=== PATIENT | male | born 1985 | race Caucasian/White ===

== ENCOUNTER 2022-06-20 01:37 | Observation (INO) | payer SELFPAY ==
[2022-06-20] VITALS (179 sets, daily range): BP systolic 100–126; BP diastolic 60–82; PULSE 55–108; RESP 10–28; TEMP 36.3–37; O2SAT 97–100
--- NOTE | 2022-06-20 01:45 | RT.EKG_ITS ---
APPROVED REPORT Exam: Resting ECG Reason for Exam: under the influence Patient Location: E HR:96 bpm ECG Measurements Heart Rate 96 AXIS RI 150 P 80 QRSd 81 QRS 78 QT 368 T 70 QTc 464 Conclusion Sinus rhythm...normal P axis, V-rate 60- 99 Probable left ventricular hypertrophy...multiple LVH criteria Physician: no stemi, intervals stable
[2022-06-20 01:50] LABS: BE (Venous) 3 mmol/L (-2-3); HCO3 (Venous) 28 mmol/L (23-28); O2 Sat (Venous) 78 %; TCO2 (Venous) 26 mmol/L (24-29); pCO2 (Venous) 50 mmHg (41-51); pH (Venous) 7.36 (7.31-7.41); pO2 (Venous) 45 mmHg
[2022-06-20 01:52] LABS: Lactate 2.3 mmol/L (0.6-1.4)
[2022-06-20 01:54] LABS: Abs Immature Grans 0.03 10^3/uL (0.0-0.06); Absolute Basophil Count 0.09 10^3/uL (0.0-0.2); Absolute Eosinophil Count 0.28 10^3/uL (0.0-0.7); Absolute Lymphocyte Count 2.49 10^3/uL (1.2-3.4); Absolute Monocyte Count 1.27 10^3/uL (0.1-0.8); Basophils % 0.8; Eosinophils % 2.4; HCT 38.6 % (40.0-50.0); HGB 12.5 g/dL (13.5-17.5); Immature Grans % 0.3; Lymphocytes % 21.1; MCH 27.2 pg (27.0-33.0); MCHC 32.4 % (32.0-36.0); MCV 84 fL (80-95); MPV 10.4 fL (8.0-11.0); Monocytes % 10.8; Neutrophils % 64.6; Platelet Count 271 10^3/uL (130-400); RDW 13.2 % (11.8-14.1); RDW-SD 40.9 fL; WBC 11.79 10^3/uL (4.4-10.8)
[2022-06-20] MEDS: LORazepam 2 MG/ML VIAL 1 MG IVP (01:55)
[2022-06-20 02:01] LABS: Absolute Neutrophil Count 7.62 10^3/uL (1.2-6.7)
[2022-06-20 02:10] LABS: ALT 99 U/L (16-63); AST 118 U/L (15-37); Albumin 4.3 g/dL (3.4-5.0); Alkaline Phosphatase 83 U/L (46-116); Anion Gap 8.2 mmol/L (3-11); BUN 29 mg/dL (7-18); CO2 28.8 mmol/L (21.0-32.0); CREATININE 1.3 mg/dL (0.70-1.30); Chloride 104 mmol/L (98-107); Estimated GFR 72.11 (mL/min/1.73m2); Glucose 108 mg/dL (74-106); Potassium 3.6 mmol/L (3.5-5.1); Sodium 141 mmol/L (136-145); Total Protein 8.2 g/dL (6.4-8.2)
--- NOTE | 2022-06-20 02:10 | ED.GENADUL_ITS ---
Discharge Plan Disposition Patient Disposition: Admit to [facility] Condition: Stable Discharge Details Chief Complaint: AMS/LOC Clinical Impression: Delirium, drug-induced, Rhabdomyolysis, Acute kidney injury, Cocaine use Primary Care Provider: Unknown,Unknown ED Provider: Mauricio Christy Medical Decision Making 37-year-old male with no known medical history who is new to this medical system who is from [place], presents today for altered mental status. This evening police got a call that a man was walking around outside yelling, being violent, and making nonsensical statements. When police got there the patient continued in his violent and aggressive behavior per police, he was nonsensical and all of his statements, with perseverations and pressured speech. He was handcuffed, but continued to flail about in the police cruiser. EMS was on scene and the decision was made to chemically restrain the patient. He was given 200 mg of ketamine and brought into the ER for further assessment. EMS has no additional historical components aside for the patient's aggressive behavior, nonsensical statements, and altered mental status. No other known historical components at this time. No drug paraphernalia was noted on scene. Patient physical exam demonstrates an extremely agitated individual, currently likely under the effects of ketamine to a degree, per EMS and police he is notably less agitated now than he was when they initially assessed him. Patient was handcuffed, and continuing to flail about here in the ED. Patient was put in four-point restraints, 2 IVs were established. He moves all extremities and shows no clinical evidence of a focal deficit of strength or discoordination. He does verbally respond to some questions, but at other times remains completely incoherent with his statements. Differential is highest for an agitated delirium state likely secondary to a psychogenic medication or illicit substance. Trauma is less likely but we will get a CT scan of the head to rule out acute traumatic process or bleed. No clinical signs of meningitis. The patient is afebrile. We will give some Ativan to continue to help maintain the patient's safety from his notable flailing. We will monitor closely and reassess. 3:30 AM EKG is stable, he intervals normal. Laboratory work-up shows mildly elevated white count, lactate is high at 2.3, VBG is stable for pH, electrolytes normal, renal function demonstrates an elevated creatinine at 1.3, GFR 72, mild elevation in his transaminases. CPK is 2700 and is consistent with rhabdomyolysis. Thyroid function stable. Acetaminophen salicylates and alcohol levels are negative. Urine drug screen is positive for amphetamines and cocaine, which certainly correlates with his symptomatology. Patient initially was dry on straight cath, however he is now urinated over 100 cc. We will continue to rehydrate. He has been given 2 L and we are starting on the third liter of normal saline at this point. CT scan of the head is negative for acute process. Troponin is normal. Procalcitonin is less than 0.1. Symptoms inconsistent with meningitis or encephalitis clinically. Discussed the case with hospitalist Dr. Garcia, she agrees with the assessment and plan. I have extensively reviewed the treatment plan with the patient. I have addressed all patient concerns at this time. I have also discussed the plan with the admitting physician and they agree with the current assessment and plan and have agreed to assume responsibility for the patient. All parties demonstrate verbal understanding and agreement with our assessment and plan at this time. The documentation in this chart was dictated using [employer] dictation software. Please excuse any dictation errors. On reassessment at time of admission the patient is resting comfortably. He is sleeping. Gag reflex notably intact. Vital signs stable with a blood pressure of 109 systolic, heart rate 84. FINDINGS: Brain: No intracranial hemorrhage. No mass. No definite edema. Cerebral ventricles: No hydrocephalus. Paranasal sinuses: No acute sinusitis. Mastoid air cells: No significant effusion. Orbital cavities: Unremarkable as visualized. Bones/joints: No acute fracture. Soft tissues: Unremarkable. IMPRESSION: No definite acute intracranial abnormality. Thank you for allowing us to participate in the care of your patient. Dictated and Authenticated by: Raymond Adkins MD 06/20/2022 3:23 AM Eastern Time ([place] & [place]) HPI General Date/Time Provider Initiated Documentation: 06/20/22 01:37 . HPI Narrative: 37-year-old male with no known medical history who is new to this medical system who is from [place], presents today for altered mental status. This evening police got a call that a man was walking around outside yelling, being violent, and making nonsensical statements. When police got there the patient continued in his violent and aggressive behavior per police, he was nonsensical and all of his statements, with perseverations and pressured speech. He was handcuffed, but continued to flail about in the police cruiser. EMS was on scene and the decision was made to chemically restrain the patient. He was given 200 mg of ketamine and brought into the ER for further assessment. EMS has no additional historical components aside for the patient's aggressive behavior, nonsensical statements, and altered mental status. No other known historical components at this time. No drug paraphernalia was noted on scene. Review of Systems All systems reviewed & are unremarkable except as noted in HPI and below PFSH All Active Problems Delirium, drug-induced (Acute) Rhabdomyolysis (Acute) Acute kidney injury (Acute) Cocaine use (Acute) Social History Smoking/Tobacco Use Status: Unknown Smoking risk assessment performed?: Yes Substance use type: unknown Exam Narrative Exam Narrative: 1.Const: Well-nourished, Well-developed, appearing stated age 2.Eyes: PERRL, no conjunctival injection, and symmetrical lids. No pinpoint pupils or overly dilated pupils 3.ENT: Atraumatic external nose and ears. Moist MM. Neck: Symmetric, trachea midline, No thyromegaly. 4.CVS: +S1/S2, No murmurs or gallops. Peripheral pulses 2+ and equal in all extremities. Brisk capillary refill in all extremities. 5.RESP: Unlabored respiratory effort. Clear to auscultation bilaterally. No wheezes rales or rhonchi 6.GI: Soft, Nontender/Nondistended, No hepatosplenomegaly. No guarding or rebound. 7.MSK: Normocephalic/Atraumatic, Extremities w/o deformity or ttp No cyanosis or clubbing, Normal movement of all extremities 8.Skin: Warm, Dry. No rashes or lesions. No vesicular rash. No signs of trauma. There do appear to be a few potential needle cam in his AC joints. 9.Neuro: fugitive detective II-XII grossly intact. Patient moving all extremities. Patient flailing about. Patient does respond verbally to some statements and questions, but then otherwise make some nonsensical sounds. Patient appears to be notably under the influence of a psychogenic substance. Gag reflex notably intact 10.Psych: (AAO) x0. Please see neuro Course Lab/Test Results Lab/Test Results: Laboratory Tests Range/Units 06/20/22 06/20/22 06/20/22 01:40 01:40 01:40 WBC (4.4-10.8) 10^3/uL 11.79 H RBC (4.36-5.78) 10^6/uL 4.60 Hgb (13.5-17.5) g/dL 12.5 L Hct (40.0-50.0) % 38.6 L MCV (80-95) fL 84 MCH (27.0-33.0) pg 27.2 MCHC (32.0-36.0) % 32.4 RDW (11.8-14.1) % 13.2 Plt Count (130-400) 10^3/uL 271 MPV (8.0-11.0) fL 10.4 Immature Gran % 0.3 Neutrophils % 64.6 Lymphocytes % 21.1 Monocytes % 10.8 Eosinophils % 2.4 Basophils % 0.8 Nucleated RBC % (0.0-0.3) % 0.0 Absolute Neutrophils (1.2-6.7) 10^3/uL 7.62 H Absolute Lymphocytes (1.2-3.4) 10^3/uL 2.49 Absolute Monocytes (0.1-0.8) 10^3/uL 1.27 H Absolute Eosinophils (0.0-0.7) 10^3/uL 0.28 Absolute Basophils (0.0-0.2) 10^3/uL 0.09 VBG pH (7.31-7.41) 7.36 VBG pCO2 (41-51) mmHg 50 VBG pO2 mmHg 45 VBG HCO3 (23-28) mmol/L 28 VBG Total CO2 (24-29) mmol/L 26 VBG O2 Saturation % 78 VBG Base Excess (-2-3) mmol/L 3 VBG Lactate (0.6-1.4) mmol/L 2.3 H* Critical Care Time Critical Care Time Critical Care Time: Yes Total Critical Care Time: 45 Attestation: Upon my evaluation, this patient had a high probability of imminent or life-threatening deterioration, which required my direct attention, intervention, and personal management. I have personally provided 45 minutes of critical care time exclusive of time spent on separately billable procedures. Time includes review of laboratory data, radiology results, discussion with consultants, and monitoring for potential decompensation. Interventions were performed as documented. Restraint Face to Face Time of Face to Face Face to Face: Time of Face to Face: 03:16 Patient's Immediate Situation Requiring Restraints/Seclusion: Harm to Staff & Others Patient Response to Restraints: Tolerating without Problems Patient's Medical & Behavioral Condition: Patient is no longer physically assaulting, he is sleeping comfortably. Restraints will be removed Need for Continuation of Restraints Has Been Assessed: Restraints Terminated
--- NOTE | 2022-06-20 02:15 | DI.CT_ITS ---
Exam(s) CT HEAD WO EXAM: CT HEAD WO CLINICAL HISTORY: AMS, r/o bleed. TECHNIQUE: Imaging Protocol: Axial computed tomography images with coronal and sagittal reformatted images were created and reviewed COMPARISON: No exams were available for comparison FINDINGS: Ventricles and Extra axial spaces: Normal in size and morphology for the patient's age. Hemorrhage: None. Cerebral parenchyma: Normal. Midline shift: None. Brainstem/Cerebellum: Normal. Calvarium: Normal. Visualized Paranasal sinuses/Mastoids: Clear. Soft Tissues: Unremarkable. IMPRESSION: No acute intracranial process. RADIATION DOSE DELIVERED: 961.69mGy.cm Total DLP DATA REPOSITORY: All CT scans at this facility are submitted to the National Radiology Data Registry (NRDR) Dose Index Registry (DIR) with the [employer] (ACR). RADIATION OPTIMIZATION: All CT scans at this facility use at least one of these dose optimization te chniques: automated exposure control; mA and/or kV adjustment per patient size (includes targeted exa ms where dose is matched to clinical indication); or iterative reconstruction.
[2022-06-20 02:19] LABS: Salicylate < 2.8 mg/dL (<2.8)
[2022-06-20 02:20] LABS: Acetaminophen < 2 ug/mL (10-30)
[2022-06-20] MEDS: Normal Saline 1,000 ML 1000 ML IV ×3 (02:20→03:30)
[2022-06-20 02:21] LABS: ETHANOL BLOOD 5.3 mg/dL (<10); TSH (W/Ref FT4) 0.24 uIU/mL (0.36-3.74); Troponin I < 50 ng/L (<or=60)
[2022-06-20 02:25] LABS: Procalcitonin < 0.1 ng/mL
--- NOTE | 2022-06-20 02:34 | NUR.NOTE ---
Nursing Note: Pt to CT - accompanied by security, a nurse and a tech
[2022-06-20 02:41] LABS: FREE T4 1.26 ng/dL (0.76-1.46)
[2022-06-20 02:45] LABS: Creatine Kinase 2712 U/L (39-308)
[2022-06-20 03:06] LABS: *AMPHETAMINES SCREEN URINE Positive (Negative); *BARBITURATES SCREEN URINE Negative (Negative); *BENZODIAZEPINES SCREEN URINE Negative (Negative); Cannabinoids THC Negative (Negative); Cocaine Screen,Urine Positive (Negative); METHADONE URINE SCREEN Negative (Negative); OPIATES URINE SCREEN Negative (Negative)
[2022-06-20 03:08] LABS: Tricyclic Antidepressants Negative (Negative)
--- NOTE | 2022-06-20 03:24 | DI.VRAD_ITS ---
PROCEDURE INFORMATION: Exam: CT Head Without Contrast Exam date and time: 06/20/2022 2:39 AM Age: 37 years old Clinical indication: Other: AMS, R/O bleed TECHNIQUE: Imaging protocol: Computed tomography of the head without contrast. Radiation optimization: All CT scans at this facility use at least one of these dose optimization techniques: automated exposure control; mA and/or kV adjustment per patient size (includes targeted exams where dose is matched to clinical indication); or iterative reconstruction. COMPARISON: No relevant prior studies available. FINDINGS: Brain: No intracranial hemorrhage. No mass. No definite edema. Cerebral ventricles: No hydrocephalus. Paranasal sinuses: No acute sinusitis. Mastoid air cells: No significant effusion. Orbital cavities: Unremarkable as visualized. Bones/joints: No acute fracture. Soft tissues: Unremarkable. IMPRESSION: No definite acute intracranial abnormality. Dictated and Authenticated by: Raymond Adkins MD. Ordering:PETE Martínez MD
--- NOTE | 2022-06-20 03:37 | HPE_ITS ---
Date of service: 06/20/22 Time of Service: 03:37 Assessment and Plan Assessment and plan (1) Elevated CK: Status: Acute Assessment and plan: No evidence of rhabdo as of yet, CK is not overly impressive. I will assess further with UA to check for blood. Patient unable to endorse whether there is muscle pain so unclear as to whether this is just CK elevations or true rhabdo. I suspect this is simple CK elevation, but will keep a close eye on urine output and send a UA once able. - UA - 1L LR - s/p 2L NS (2) Agitated: Status: Acute Assessment and plan: Due to drug intoxication, resolved with sedation provided. Head CT nothing acute. - Ativan prn for when he wakes up - if agitation returns, would consider Precedex (3) Delirium, drug-induced: Status: Acute (4) Intoxication by drug: Status: Acute History of Present Illness Narrative: This is a 37 yo who is from [place] and is being admitted for polysubstance intoxication, agitation and elevated CPK levels. The police were called on this patient overnight with reports of yelling, violent behaviour and confused statements. He was handcuffed but remained physically agitated while in custody. EMS on scene restrained him and he was given 200mg ketamine and brought to the ED for assessment. This patient is new to our medical system and presumably is otherwise healthy. His labs were significant for an elevated CK, but with a normal GFR, normal VBG and a tox screen positive for amphetamines and cocaine. His EtOH level is 5.3. His EKG and head CT are not concerning. Admission was requested as the patient was now somnolent. Patient is sedated and non participatory in interview. Review of Systems Unobtainable due to mental status PFSH All Active Problems Intoxication by drug (Acute) Agitated (Acute) Elevated CK (Acute) Delirium, drug-induced (Acute) Cocaine use (Acute) Social History Smoking/Tobacco Use Status: Unknown Smoking risk assessment performed?: Yes Substance use type: unknown Exam Narrative Exam Narrative: Gen: NAD, sleeping, well-nourished HENT: PERRL Chest: No respiratory distress, normal appearance of chest, clear to auscultation bilaterally, no crackles or wheezes, normal inspiratory effort Heart: regular rate and rhythym, no murmurs, rubs or gallops Abdomen: Non-distended, soft, non tender Extremities: No clubbing, edema, cyanosis, rashes Neuro: somnolent Psych: somnolent Results Labs Result diagrams: 06/20/22 01:40 06/20/22 01:40 Labs: Laboratory Results - last 24 hr 06/20/22 06/20/22 06/20/22 01:40 01:40 01:40 WBC RBC Hgb Hct MCV MCH MCHC RDW Plt Count MPV Immature Gran % Neutrophils % Lymphocytes % Monocytes % Eosinophils % Basophils % Nucleated RBC % Absolute Neutrophils Absolute Lymphocytes Absolute Monocytes Absolute Eosinophils Absolute Basophils VBG pH VBG pCO2 VBG pO2 VBG HCO3 VBG Total CO2 VBG O2 Saturation VBG Base Excess VBG Lactate Sodium 141 Potassium 3.6 Chloride 104 Carbon Dioxide 28.8 Anion Gap 8.2 BUN 29 H Creatinine 1.3 Est GFR (CKD-EPI 2020) 72.11 Glucose 108 H Calcium 9.0 Total Bilirubin 1.0 AST 118 H ALT 99 H Alkaline Phosphatase 83 Creatine Kinase Troponin I Total Protein 8.2 Albumin 4.3 Procalcitonin < 0.1 TSH Free T4 Salicylates < 2.8 Urine Opiates Screen Urine Methadone Screen Acetaminophen < 2 Ur Barbiturates Screen Ur Tricyclics Screen Ur Amphetamines Screen U Benzodiazepines Scrn Urine Cocaine Screen Ur THC Screen Ethyl Alcohol 06/20/22 06/20/22 06/20/22 01:40 01:40 01:40 WBC 11.79 H RBC 4.60 Hgb 12.5 L Hct 38.6 L MCV 84 MCH 27.2 MCHC 32.4 RDW 13.2 Plt Count 271 MPV 10.4 Immature Gran % 0.3 Neutrophils % 64.6 Lymphocytes % 21.1 Monocytes % 10.8 Eosinophils % 2.4 Basophils % 0.8 Nucleated RBC % 0.0 Absolute Neutrophils 7.62 H Absolute Lymphocytes 2.49 Absolute Monocytes 1.27 H Absolute Eosinophils 0.28 Absolute Basophils 0.09 VBG pH VBG pCO2 VBG pO2 VBG HCO3 VBG Total CO2 VBG O2 Saturation VBG Base Excess VBG Lactate 2.3 H* Sodium Potassium Chloride Carbon Dioxide Anion Gap BUN Creatinine Est GFR (CKD-EPI 2020) Glucose Calcium Total Bilirubin AST ALT Alkaline Phosphatase Creatine Kinase Troponin I < 50 Total Protein Albumin Procalcitonin TSH 0.24 L Free T4 1.26 Salicylates Urine Opiates Screen Urine Methadone Screen Acetaminophen Ur Barbiturates Screen Ur Tricyclics Screen Ur Amphetamines Screen U Benzodiazepines Scrn Urine Cocaine Screen Ur THC Screen Ethyl Alcohol 5.3 06/20/22 06/20/22 06/20/22 01:40 01:40 02:47 WBC RBC Hgb Hct MCV MCH MCHC RDW Plt Count MPV Immature Gran % Neutrophils % Lymphocytes % Monocytes % Eosinophils % Basophils % Nucleated RBC % Absolute Neutrophils Absolute Lymphocytes Absolute Monocytes Absolute Eosinophils Absolute Basophils VBG pH 7.36 VBG pCO2 50 VBG pO2 45 VBG HCO3 28 VBG Total CO2 26 VBG O2 Saturation 78 VBG Base Excess 3 VBG Lactate Sodium Potassium Chloride Carbon Dioxide Anion Gap BUN Creatinine Est GFR (CKD-EPI 2020) Glucose Calcium Total Bilirubin AST ALT Alkaline Phosphatase Creatine Kinase 2712 H Troponin I Total Protein Albumin Procalcitonin TSH Free T4 Salicylates Urine Opiates Screen Negative Urine Methadone Screen Negative Acetaminophen Ur Barbiturates Screen Negative Ur Tricyclics Screen Negative Ur Amphetamines Screen Positive A U Benzodiazepines Scrn Negative Urine Cocaine Screen Positive A Ur THC Screen Negative Ethyl Alcohol Last Vital Signs Temp 37 C 06/20/22 02:00 Pulse 75 06/20/22 03:31 Resp 12 06/20/22 03:31 BP 103/65 06/20/22 03:31 Pulse Ox 98 06/20/22 02:00 Time Spent Time spent with Patient: <40 minutes Time was spent: preparing to see the patient(eg.review tests), obtaining and/or reviewing separately otained hiistory, ordering medications,tests, procedures and referring, communicating with other health care management specialist
[2022-06-20 03:53] LABS: Source Nasal/Nares
[2022-06-20 03:58] LABS: Bilirubin Negative (Negative); Blood Negative (Negative); Clarity Sl Cloudy (Clear); Glucose Negative (Negative); Ketones Negative (Negative); Leukocyte Esterase Negative (Negative); Nitrite Negative (Negative); Specific Gravity >= 1.030 (1.005-1.025); Urobilinogen 0.2 EU/dL (Up TO 0.2); pH 5.5 (5-8)
[2022-06-20 04:08] LABS: Bacteria Moderate HPF (Negative); C & S Indicated? Yes; Crystals Few Amorphous HPF (Negative); Epithelial Cells Rare HPF (Negative); Mucus Negative (Negative); RBC 0-2 HPF (0-2)
[2022-06-20 04:23] LABS: COVID-19 PCR Negative (Negative)
[2022-06-20 10:09] LABS: BUN 24 mg/dL (7-18); CREATININE 0.9 mg/dL (0.70-1.30); Calcium 8.1 mg/dL (8.5-10.1); Chloride 109 mmol/L (98-107); Creatine Kinase 2200 U/L (39-308); Estimated GFR 112.11 (mL/min/1.73m2); Glucose 97 mg/dL (74-106); Sodium 142 mmol/L (136-145)
[2022-06-20 10:25] LABS: HCT 34.4 % (40.0-50.0); HGB 11.5 g/dL (13.5-17.5); MCV 84 fL (80-95); RBC 4.11 10^6/uL (4.36-5.78); WBC 10.15 10^3/uL (4.4-10.8)
[2022-06-20 10:26] LABS: MCHC 33.4 % (32.0-36.0); MPV 10.9 fL (8.0-11.0); Platelet Count 211 10^3/uL (130-400); RDW 13.5 % (11.8-14.1); RDW-SD 41.5 fL
--- NOTE | 2022-06-20 10:28 | PDOC.CMIN ---
- If Service Date Differs Date of service: 06/20/22 Time of Service: 10:28 Care Management Initial Assess REASON FOR HOSPITALIZATION:: Drug induced delirium, AMS PAST MEDICAL HISTORY/PAST SURGICAL HISTORY:: This is a 37 yo who is from [place] and is being admitted for polysubstance intoxication, agitation and elevated CPK levels. The police were called on this patient overnight with reports of yelling, violent behaviour and confused statements. He was handcuffed but remained physically agitated while in custody. EMS on scene restrained him and he was given 200mg ketamine and brought to the ED for assessment. This patient is new to our medical system and presumably is otherwise healthy. His labs were significant for an elevated CK, but with a normal GFR, normal VBG and a tox screen positive for amphetamines and cocaine. His EtOH level is 5.3. His EKG and head CT are not concerning. Admission was requested as the patient was now somnolent. Patient is sedated and non participatory in interview. CURRENT FUNCTIONAL STATUS:: Sedated in ICU. Has patient been provided with info about the portal/API?: No Did the patient sign up for the portal?: No CODE STATUS:: Full Code INSURANCE COVERAGE / FINANCIAL ISSUES:: Unknown PRIMARY CARE PHYSICIAN:: Unknown POTENTIAL DISCHARGE NEEDS:: Determine safe discharge plan, current service supports, patient information. ANTICIPATED BARRIERS TO DISCHARGE:: None identified. TRANSPORTATION:: TBD by disposition. PLAN:: Patient is sedated and non participatory in interview. CM will continue to follow and support patient needs and discharge planning considerations. CPSO ordered at this time for patient safety; no interim safety plan indicated at this time, once medically cleared this may be reconsidered-if indicated.
[2022-06-20] MEDS: Lactated Ringers 1,000 ML 125 ML IV ×2 (12:23→19:59)
[2022-06-20] MEDS: Normal Saline Flush 10 ML SYR (13:10)
--- NOTE | 2022-06-20 13:59 | PGE_ITS ---
Date of Service Date of service: 06/20/22 Time of Service: 10:00 Assessment and Plan Assessment and plan (1) Delirium, drug-induced: Status: Acute Assessment and plan: So far, the patient is mostly asleep. Should he become agitated again, we have a number of options that can be used to control his behaviors including lorazepam, precedex, antipsychotics, ketamine pushes (50 mg would last about an hour) or a ketamine drip (would require an anesthesia consult). Continues to monitor behaviors. has a sitter. (2) Elevated CK: Status: Acute Assessment and plan: Continue IVF. CPK is trending down. (3) Intoxication by drug: Status: Acute Assessment and plan: UDS positive for cocaine and amphetamines. Will monitor for both signs of intoxication and withdrawal. (4) Dehydration: Status: Acute Assessment and plan: Continue IVF. (5) DVT prophylaxis: Status: Acute Assessment and plan: Not required in a 37 year old ambulatory male (6) Discharge planning issues: Status: Acute Assessment and plan: Full code Continues to require ICU. Total Critical Care Time 45 minutes. Subjective Subjective Interval history since last seen: Mr Shannon has been asleep comfortably. He has not required oxygen and is able to maintain his airway. Nursing is working on discontinuing his 4 point restraints. He does not wake up enough during my visit to answer questions. Exam Narrative Exam Narrative: General: male who is resting comfortably in bed, breathing sonorously HEENT: eyes closed, dry MM Heart: RRR Lungs: CTAB Abdomen: soft, nondistended Extremities: no edema BLEs, [address] Objective Last Vital Signs Temp 36.8 C 06/20/22 08:00 Pulse 72 06/20/22 13:11 Resp 13 06/20/22 13:11 BP 106/68 06/20/22 13:11 Pulse Ox 97 06/20/22 13:11 Laboratory Results - last 24 hr 06/20/22 06/20/22 06/20/22 01:40 01:40 01:40 WBC RBC Hgb Hct MCV MCH MCHC RDW Plt Count MPV Immature Gran % Neutrophils % Lymphocytes % Monocytes % Eosinophils % Basophils % Nucleated RBC % Absolute Neutrophils Absolute Lymphocytes Absolute Monocytes Absolute Eosinophils Absolute Basophils VBG pH VBG pCO2 VBG pO2 VBG HCO3 VBG Total CO2 VBG O2 Saturation VBG Base Excess VBG Lactate Sodium 141 Potassium 3.6 Chloride 104 Carbon Dioxide 28.8 Anion Gap 8.2 BUN 29 H Creatinine 1.3 Est GFR (CKD-EPI 2020) 72.11 Glucose 108 H Calcium 9.0 Total Bilirubin 1.0 AST 118 H ALT 99 H Alkaline Phosphatase 83 Creatine Kinase Troponin I Total Protein 8.2 Albumin 4.3 Procalcitonin < 0.1 TSH Free T4 Urine Color Urine Clarity Urine pH Ur Specific Blackwell Urine Protein Urine Ketones Urine Blood Urine Nitrite Urine Bilirubin Urine Urobilinogen Ur Leukocyte Esterase Urine RBC Urine WBC Ur Epithelial Cells Urine Crystals Urine Bacteria Urine Mucus Ur Culture Indicated? Urine Glucose Salicylates < 2.8 Urine Opiates Screen Urine Methadone Screen Acetaminophen < 2 Ur Barbiturates Screen Ur Tricyclics Screen Ur Amphetamines Screen U Benzodiazepines Scrn Urine Cocaine Screen Ur THC Screen Ethyl Alcohol COVID-19 Source SARS-CoV-2 (PCR) 06/20/22 06/20/22 06/20/22 01:40 01:40 01:40 WBC 11.79 H RBC 4.60 Hgb 12.5 L Hct 38.6 L MCV 84 MCH 27.2 MCHC 32.4 RDW 13.2 Plt Count 271 MPV 10.4 Immature Gran % 0.3 Neutrophils % 64.6 Lymphocytes % 21.1 Monocytes % 10.8 Eosinophils % 2.4 Basophils % 0.8 Nucleated RBC % 0.0 Absolute Neutrophils 7.62 H Absolute Lymphocytes 2.49 Absolute Monocytes 1.27 H Absolute Eosinophils 0.28 Absolute Basophils 0.09 VBG pH VBG pCO2 VBG pO2 VBG HCO3 VBG Total CO2 VBG O2 Saturation VBG Base Excess VBG Lactate 2.3 H* Sodium Potassium Chloride Carbon Dioxide Anion Gap BUN Creatinine Est GFR (CKD-EPI 2020) Glucose Calcium Total Bilirubin AST ALT Alkaline Phosphatase Creatine Kinase Troponin I < 50 Total Protein Albumin Procalcitonin TSH 0.24 L Free T4 1.26 Urine Color Urine Clarity Urine pH Ur Specific Blackwell Urine Protein Urine Ketones Urine Blood Urine Nitrite Urine Bilirubin Urine Urobilinogen Ur Leukocyte Esterase Urine RBC Urine WBC Ur Epithelial Cells Urine Crystals Urine Bacteria Urine Mucus Ur Culture Indicated? Urine Glucose Salicylates Urine Opiates Screen Urine Methadone Screen Acetaminophen Ur Barbiturates Screen Ur Tricyclics Screen Ur Amphetamines Screen U Benzodiazepines Scrn Urine Cocaine Screen Ur THC Screen Ethyl Alcohol 5.3 COVID-19 Source SARS-CoV-2 (PCR) 06/20/22 06/20/22 06/20/22 01:40 01:40 02:47 WBC RBC Hgb Hct MCV MCH MCHC RDW Plt Count MPV Immature Gran % Neutrophils % Lymphocytes % Monocytes % Eosinophils % Basophils % Nucleated RBC % Absolute Neutrophils Absolute Lymphocytes Absolute Monocytes Absolute Eosinophils Absolute Basophils VBG pH 7.36 VBG pCO2 50 VBG pO2 45 VBG HCO3 28 VBG Total CO2 26 VBG O2 Saturation 78 VBG Base Excess 3 VBG Lactate Sodium Potassium Chloride Carbon Dioxide Anion Gap BUN Creatinine Est GFR (CKD-EPI 2020) Glucose Calcium Total Bilirubin AST ALT Alkaline Phosphatase Creatine Kinase 2712 H Troponin I Total Protein Albumin Procalcitonin TSH Free T4 Urine Color Urine Clarity Urine pH Ur Specific Blackwell Urine Protein Urine Ketones Urine Blood Urine Nitrite Urine Bilirubin Urine Urobilinogen Ur Leukocyte Esterase Urine RBC Urine WBC Ur Epithelial Cells Urine Crystals Urine Bacteria Urine Mucus Ur Culture Indicated? Urine Glucose Salicylates Urine Opiates Screen Negative Urine Methadone Screen Negative Acetaminophen Ur Barbiturates Screen Negative Ur Tricyclics Screen Negative Ur Amphetamines Screen Positive A U Benzodiazepines Scrn Negative Urine Cocaine Screen Positive A Ur THC Screen Negative Ethyl Alcohol COVID-19 Source SARS-CoV-2 (PCR) 06/20/22 06/20/22 06/20/22 02:47 03:50 05:20 WBC RBC Hgb Hct MCV MCH MCHC RDW Plt Count MPV Immature Gran % Neutrophils % Lymphocytes % Monocytes % Eosinophils % Basophils % Nucleated RBC % Absolute Neutrophils Absolute Lymphocytes Absolute Monocytes Absolute Eosinophils Absolute Basophils VBG pH VBG pCO2 VBG pO2 VBG HCO3 VBG Total CO2 VBG O2 Saturation VBG Base Excess VBG Lactate Sodium Potassium Chloride Carbon Dioxide Anion Gap BUN Creatinine Est GFR (CKD-EPI 2020) Glucose Calcium Total Bilirubin AST ALT Alkaline Phosphatase Creatine Kinase 2200 H Troponin I Total Protein Albumin Procalcitonin TSH Free T4 Urine Color Yellow Urine Clarity Sl Cloudy Urine pH 5.5 Ur Specific Blackwell >= 1.030 H Urine Protein 30 H Urine Ketones Negative Urine Blood Negative Urine Nitrite Negative Urine Bilirubin Negative Urine Urobilinogen 0.2 Ur Leukocyte Esterase Negative Urine RBC 0-2 Urine WBC 3-5 Ur Epithelial Cells Rare Urine Crystals Few Amorphous Urine Bacteria Moderate Urine Mucus Negative Ur Culture Indicated? Yes Urine Glucose Negative Salicylates Urine Opiates Screen Urine Methadone Screen Acetaminophen Ur Barbiturates Screen Ur Tricyclics Screen Ur Amphetamines Screen U Benzodiazepines Scrn Urine Cocaine Screen Ur THC Screen Ethyl Alcohol COVID-19 Source Nasal/Nares SARS-CoV-2 (PCR) Negative 06/20/22 06/20/22 05:20 05:20 WBC 10.15 RBC 4.11 L Hgb 11.5 L Hct 34.4 L MCV 84 MCH 28.0 MCHC 33.4 RDW 13.5 Plt Count 211 MPV 10.9 Immature Gran % Neutrophils % Lymphocytes % Monocytes % Eosinophils % Basophils % Nucleated RBC % Absolute Neutrophils Absolute Lymphocytes Absolute Monocytes Absolute Eosinophils Absolute Basophils VBG pH VBG pCO2 VBG pO2 VBG HCO3 VBG Total CO2 VBG O2 Saturation VBG Base Excess VBG Lactate Sodium 142 Potassium 4.0 Chloride 109 H Carbon Dioxide 25.0 Anion Gap 8.0 BUN 24 H Creatinine 0.9 Est GFR (CKD-EPI 2020) 112.11 Glucose 97 Calcium 8.1 L Total Bilirubin AST ALT Alkaline Phosphatase Creatine Kinase Troponin I Total Protein Albumin Procalcitonin TSH Free T4 Urine Color Urine Clarity Urine pH Ur Specific Blackwell Urine Protein Urine Ketones Urine Blood Urine Nitrite Urine Bilirubin Urine Urobilinogen Ur Leukocyte Esterase Urine RBC Urine WBC Ur Epithelial Cells Urine Crystals Urine Bacteria Urine Mucus Ur Culture Indicated? Urine Glucose Salicylates Urine Opiates Screen Urine Methadone Screen Acetaminophen Ur Barbiturates Screen Ur Tricyclics Screen Ur Amphetamines Screen U Benzodiazepines Scrn Urine Cocaine Screen Ur THC Screen Ethyl Alcohol COVID-19 Source SARS-CoV-2 (PCR) Multi-Disciplinary Checklist Lines/Tubes CENTRAL LINE: no ARTERIAL LINE: no ARENAS: yes, [place] Day#: 0 ENDOTRACHEAL TUBE: no ICU Maintenance GLUCOSE 140-180mg/dL: no, Reason/Intervention: not diabetic NUTRITION AT GOAL: no, Reason/Intervention: writing for a clear liquid diet, advance as tolerated PRESSURE ULCER: no RESTRAINTS: yes, Reviewed Necessity: Yes ANTIBIOTICS(if yes, consider Stewardship): No Social Issues FAMILY UPDATED: no, Reason/Intervention: no contact info in the computer PT/OT: no, Reason/Intervention: not clinically appropriate 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
[2022-06-20 16:30] LABS: Lactate 0.7 mmol/L (0.6-1.4)
--- NOTE | 2022-06-20 18:29 | NUR.NOTE ---
pt expressed gratitude for nurses effort to meet his needs at the end of the shift.
[2022-06-21] VITALS (10 sets, daily range): BP systolic 98–123; BP diastolic 50–80; PULSE 72–100; RESP 11–15; TEMP 36.7–37.1; O2SAT 96–98
[2022-06-21 06:33] LABS: Abs Immature Grans 0.01 10^3/uL (0.0-0.06); Absolute Basophil Count 0.08 10^3/uL (0.0-0.2); Absolute Eosinophil Count 0.21 10^3/uL (0.0-0.7); Absolute Lymphocyte Count 1.26 10^3/uL (1.2-3.4); Absolute Monocyte Count 0.45 10^3/uL (0.1-0.8); Absolute Neutrophil Count 4.47 10^3/uL (1.2-6.7); Basophils % 1.2; Eosinophils % 3.2; HCT 37.2 % (40.0-50.0); HGB 12.1 g/dL (13.5-17.5); Immature Grans % 0.2; Lymphocytes % 19.4; MCH 27.5 pg (27.0-33.0); MCHC 32.5 % (32.0-36.0); MCV 85 fL (80-95); MPV 10.9 fL (8.0-11.0); Monocytes % 6.9; Neutrophils % 69.1; Platelet Count 253 10^3/uL (130-400); RDW 13.7 % (11.8-14.1); RDW-SD 42.6 fL; WBC 6.48 10^3/uL (4.4-10.8)
[2022-06-21 06:58] LABS: ALT 91 U/L (16-63); AST 92 U/L (15-37); Albumin 2.9 g/dL (3.4-5.0); Alkaline Phosphatase 69 U/L (46-116); Anion Gap 8.3 mmol/L (3-11); BUN 16 mg/dL (7-18); Bilirubin, Direct 0.2 mg/dL (0.0-0.2); Bilirubin, Total 1.1 mg/dL (0.2-1.0); CO2 25.7 mmol/L (21.0-32.0); CREATININE 0.8 mg/dL (0.70-1.30); Calcium 8.3 mg/dL (8.5-10.1); Chloride 105 mmol/L (98-107); Creatine Kinase 613 U/L (39-308); Estimated GFR 116.17 (mL/min/1.73m2); Glucose 198 mg/dL (74-106); Lipase 47 U/L (73-393); Magnesium 1.9 mg/dL (1.8-2.4); Potassium 3.1 mmol/L (3.5-5.1); Sodium 139 mmol/L (136-145); Total Protein 6.3 g/dL (6.4-8.2)
--- NOTE | 2022-06-21 08:34 | W.PULMCC ---
General Date of Service Date of service: 06/21/22 Time of Service: 08:34 Reason for Admission to ICU: Agitation Drug intoxication Assessment and Plan Assessment and plan (1) Intoxication by drug: Status: Acute (2) Agitated: Status: Acute (3) Elevated CK: Status: Acute Assessment and plan: This is a 37 yo who is from [place] and is being admitted for polysubstance intoxication, agitation and elevated CPK levels.?He required sedation during his period of acute intoxication. This was done safely and he awoke from this no longer agitated. He is medically doing well and has no further ICU needs. Recommendations Pulmonary: No acute concerns Cardiac: No acute concerns Renal: Elevated CK - no blood in urine, no concern for rhabdo - levels improved I&O: Intake & Output 06/18/22 06/19/22 06/20/22 06/21/22 23:59 23:59 23:59 23:59 Intake Total 4000 / 4000 1000 / 1000 Output Total 1400 / 1400 525 / 525 Balance 2600 / 2600 475 / 475 Weight 65.9 kg Daily Fluid Goal:: even GI Nutrition: ok for diet Infectious Disease: No acute concern Hematologic: No acute concern Neurologic: Acute intoxication - s/p IVF Agitation - resolved - s/p ketamine sedation - Ativan prn Endocrine: No acute concern Lines: PIV Lockhart- can be discontinued Prophylaxis: None indicated Code Status: Resuscitation Status Full Code Subjective Critical and life-threatening events over the past 24 hours: Iraj woke up and is no longer intoxicated or agitated Exam Narrative Exam Narrative: Gen:?NAD, sleeping, well-nourished HENT:?PERRL Chest:?No respiratory distress, normal appearance of chest, clear to auscultation bilaterally, no crackles or wheezes, normal inspiratory effort Heart:?regular rate and rhythym, no murmurs, rubs or gallops Abdomen:?Non-distended, soft, non tender Extremities:?No clubbing, edema, cyanosis, rashes Neuro:?non focal Psych:?cooperative Most Recent VS/Results Last Vital Signs Temp 37 C 06/21/22 04:00 Pulse 89 06/21/22 06:00 Resp 13 06/21/22 06:00 BP 123/80 06/21/22 06:00 Pulse Ox 98 06/21/22 06:00 Laboratory Results - last 24 hr 06/20/22 06/20/22 06/20/22 05:20 05:20 05:20 WBC 10.15 RBC 4.11 L Hgb 11.5 L Hct 34.4 L MCV 84 MCH 28.0 MCHC 33.4 RDW 13.5 Plt Count 211 MPV 10.9 Immature Gran % Neutrophils % Lymphocytes % Monocytes % Eosinophils % Basophils % Nucleated RBC % Absolute Neutrophils Absolute Lymphocytes Absolute Monocytes Absolute Eosinophils Absolute Basophils VBG Lactate Sodium 142 Potassium 4.0 Chloride 109 H Carbon Dioxide 25.0 Anion Gap 8.0 BUN 24 H Creatinine 0.9 Est GFR (CKD-EPI 2020) 112.11 Glucose 97 Calcium 8.1 L Magnesium Total Bilirubin Conjugated Bilirubin AST ALT Alkaline Phosphatase Creatine Kinase 2200 H Total Protein Albumin Lipase 06/20/22 06/21/22 06/21/22 11:01 05:26 05:26 WBC 6.48 RBC 4.40 Hgb 12.1 L Hct 37.2 L MCV 85 MCH 27.5 MCHC 32.5 RDW 13.7 Plt Count 253 MPV 10.9 Immature Gran % 0.2 Neutrophils % 69.1 Lymphocytes % 19.4 Monocytes % 6.9 Eosinophils % 3.2 Basophils % 1.2 Nucleated RBC % 0.0 Absolute Neutrophils 4.47 Absolute Lymphocytes 1.26 Absolute Monocytes 0.45 Absolute Eosinophils 0.21 Absolute Basophils 0.08 VBG Lactate 0.7 Sodium 139 Potassium 3.1 L Chloride 105 Carbon Dioxide 25.7 Anion Gap 8.3 BUN 16 Creatinine 0.8 Est GFR (CKD-EPI 2020) 116.17 Glucose 198 H Calcium 8.3 L Magnesium 1.9 Total Bilirubin 1.1 H Conjugated Bilirubin 0.2 AST 92 H ALT 91 H Alkaline Phosphatase 69 Creatine Kinase 613 H Total Protein 6.3 L Albumin 2.9 L Lipase 47 Review of Systems All systems reviewed & are unremarkable except as noted in HPI and below Time spent with patient Time spent in Critical Care: 35 Time spent in Critical care included: Chart review, Documenting critically ill care, Time at immediate bedside and Discussing critically ill care with other medical staff
[2022-06-21] MEDS: Potassium Chloride 20 MEQ TABCR 40 MEQ PO (09:41)
--- NOTE | 2022-06-21 10:05 | NUR.NOTE ---
Lockhart catheter is dc'd by RN.Nursing Note:
--- NOTE | 2022-06-21 10:06 | NUR.NOTE ---
RN offers patient a shower. Patient declines same at this time.Nursing Note:
--- NOTE | 2022-06-21 11:19 | NUR.NOTE ---
Med/Surg sales secretary, Access and Physician President are advised via SN[facility] message of processed transfer orders to Med/Surg.Nursing Note:
--- NOTE | 2022-06-21 11:39 | NUR.NOTE ---
Patient continues to lightly sleep in bed but is easily arousable. Vital signs stable; will continue to monitor.Nursing Note:
--- NOTE | 2022-06-21 13:32 | NUR.NOTE ---
Patient is encouraged to make some telephone calls to emergency housing but says same would be fruitless and does not call.Nursing Note:
--- NOTE | 2022-06-21 14:02 | DSE_ITS ---
Date of service: 06/21/22 Time of Service: 14:03 DS: Diagnosis Discharge Diagnosis (1) Delirium, drug-induced: Status: Acute (2) Intoxication by drug: Status: Acute (3) Cocaine use: Status: Acute (4) Methamphetamine intoxication: Status: Acute (5) Dehydration: Status: Acute (6) Rhabdomyolysis: Status: Resolved (7) Hypokalemia: Status: Acute (8) Urinary retention: Status: Resolved Discharge Plan Disposition Patient Disposition: Other Disposition Not Listed Other Facility: [facility] [place] Condition: Stable Discharge Details Reason For Visit: Agitation Admit Date/Time: 06/20/22 03:33 Admit Provider: David Angulo Attending Provider: David Angulo Primary Care Provider: Unknown,Unknown Hospital Course Hospital Course: Mr Shannon is a 37 year old male with no known PMHx who is from [place] who was a patient on [facility] ICU under the hospitalist service from 06/20/22 until 06/21/22 for agitated delirium with violent behaviors in setting of a UDS positive for cocaine and amphetamines. He also had evidence of rhabdomyolysis without CHRIS. The patient had received SC ketamine by EMS and required additional IV lorazepam followed by more ketamine IV in our ICU. He required 4 point restraints which were discontinued once he became somnolent/sedated/cooperative. He did become somnolent/sedated with these measures without requiring respiratory support. He required placement of a mendez catheter for urinary retention. He had a clinical safety observer who was discontinued once he started to be cooperative and not violent. He was treated with IVF for his rhabdomyolysis. He did not end up developing an CHRIS. We did replete his potassium. The patient does not have a place to stay in [place] and does not have money to get back to [place]. He is being discharged with a ride to [email or web address], now that he is medically stable. 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 He is able to eat, drink. His mendez catheter has been removed. He passed a voiding trial. Care for patient as well as completion of his discharge summary on day of discharge took 40 minutes. Discharge Instructions Instructions: Cocaine Abuse (DC), Acute Delirium (DC), Methamphetamine Abuse (DC) Additional Instructions: Follow up with your college basketball coach. Return to the hospital should you develop any fever, bleeding, chest pain, or shortness of breath. You should abstain from further use of cocaine and methamphetamines. Activity:: Activity as Tolerated Equipment/Supplies:: No Equipment Needed Diet:: As Tolerated Discharge Orders Discharge Orders: Discharge Order (Routine); Ordered 06/21/22 Ordered By: Areli Ramos DS: Summary Time Spent with Patient providing and/or coordinating discharge services: Greater than 30 minutes Status at Discharge Functional status at discharge: independent ambulation Overall status at discharge: patient is progressing back to baseline Mental Status: other (sleepy but can stay awake, speaking in full sentences, pays attention) Speech and Movement: speech and movement normal Mood: congruent mood and other (sleepy but can stay awake, speaking in full sentences, pays attention) Affect: blunted Exam Narrative Exam Narrative: General: male who is restingin bed, wakes up easily HEENT: eyes closed, MMM Heart: RRR Lungs: CTAB Abdomen: soft, nondistended Extremities: no edema BLEs Psych Mental Status: other (sleepy but can stay awake, speaking in full sentences, pays attention) Speech and Movement: speech and movement normal Mood: congruent mood and other (sleepy but can stay awake, speaking in full sentences, pays attention) Affect: blunted DS: Data Vitals/I&O Vitals and I&O: Vital Signs Temperature 36.7 C 06/21/22 10:07 Temperature Source Temporal Artery Scan 06/21/22 10:07 Pulse 72 06/21/22 10:07 Pulse 80 06/20/22 04:10 Respiratory Rate 13 06/21/22 10:07 Respiratory Effort 06/21/22 10:07 Respiratory Depth Normal 06/21/22 10:07 Respiratory Pattern Normal 06/21/22 10:07 Blood Pressure 98/59 L 06/21/22 10:07 Blood Pressure Mean 72 06/21/22 10:07 Blood Pressure Position Supine 06/21/22 10:07 Pulse Oximetry 97 06/21/22 10:07 Oxygen Delivery Method Room Air 06/21/22 10:07 Oxygen Flow Rate 0 06/21/22 10:07 Pain Level 0 06/21/22 10:07 Intake & Output 06/20/22 06/21/22 06/21/22 23:59 11:59 23:59 Intake Total 2000 / 4000 1120 / 1480 360 / 1480 Output Total 800 / 1400 525 / 525 Balance 1200 / 2600 595 / 955 360 / 955 Intake: IV 1950 / 3950 1000 / 1000 Oral 50 / 50 120 / 480 360 / 480 Output: Urine 800 / 1400 525 / 525 Other: Urine Color Yellow Yellow Light Isamar Urine Appearance Clear Clear Comment pt has mendez, patent and draining. Mendez dc'd. Awaiting time for next void. Stool Size Copious Stool Characteristics Soft Formed Brown Data Completed and Pending Completed studies during hospitalization [Text1]: CT head: No acute intracranial process.? Labs on day of discharge: Labs from last 24 hours 06/21/22 06/21/22 06/20/22 05:26 05:26 11:01 WBC 6.48 RBC 4.40 Hgb 12.1 L Hct 37.2 L MCV 85 MCH 27.5 MCHC 32.5 RDW 13.7 Plt Count 253 MPV 10.9 Immature Gran % 0.2 Neutrophils % 69.1 Lymphocytes % 19.4 Monocytes % 6.9 Eosinophils % 3.2 Basophils % 1.2 Nucleated RBC % 0.0 Absolute Neutrophils 4.47 Absolute Lymphocytes 1.26 Absolute Monocytes 0.45 Absolute Eosinophils 0.21 Absolute Basophils 0.08 VBG Lactate 0.7 Sodium 139 Potassium 3.1 L Chloride 105 Carbon Dioxide 25.7 Anion Gap 8.3 BUN 16 Creatinine 0.8 Est GFR (CKD-EPI 2020) 116.17 Glucose 198 H Calcium 8.3 L Magnesium 1.9 Total Bilirubin 1.1 H Conjugated Bilirubin 0.2 AST 92 H ALT 91 H Alkaline Phosphatase 69 Creatine Kinase 613 H Total Protein 6.3 L Albumin 2.9 L Lipase 47 Preliminary micro results at discharge 06/20/22 02:47 Urine Culture - Preliminary Urine - Reflex from [facility] All Active Problems Hypokalemia (Acute) Methamphetamine intoxication (Acute) Discharge planning issues (Acute) DVT prophylaxis (Acute) Dehydration (Acute) Intoxication by drug (Acute) Agitated (Acute) Elevated CK (Acute) Delirium, drug-induced (Acute) Cocaine use (Acute) Social History Smoking/Tobacco Use Status: Unknown Smoking risk assessment performed?: Yes Substance use type: unknown Time Spent with Patient Time Spent with Patient: 45-69 minutes Time was spent: preparing to see the patient(eg.review tests), obtaining and/or reviewing separately otained hiistory, ordering medications,tests, procedures, referring, communicating with other health landcare officer, indepentently interpreting results, counseling the patient and care coordination
--- NOTE | 2022-06-21 15:26 | CMDISCH_ITS ---
- If Service Date Differs Date of service: 06/21/22 Time of Service: 15:26 LACE Index Scoring Tool - Questions: Length of Stay (in days): 1 Acuity (Admit via E.D.?): Yes E.D. Visits: 1 - Answers: Total Score: 5 Risk of Readmission: Low Risk Care Management Discharge Reason for Hospitalization: Drug induced delirium, AMS Discharge Plan: Iraj will return to the community today, as he is medically cleared. CM will coordinate transport to [employer] for housing support via [employer] private vehicle. CM advised him to call or 211 (after hours) in order to obtain emergency housing for tonight. He stated that he spoke to someone at [employer], who told him to go to their building to fill out paperwork. CM connected him to a varsity baseball coach as well as [facility], for continued support in the community. Iraj is from out of the [place] and is unsure if he will remain in [place]. He will follow up with his PCP and discharge plan of care. Patient/Family Education Needs: Review discharge instructions and limitations, discussion of self care needs including ask me three.
== END 2022-06-21 15:45 | disposition other institution (70) ==
LOC: ER 04:42 → ICU 04:46
PROVIDERS: Internal Medicine; Student in an Organized Health Care Education/Training Program; Admitting Provider Family Medicine; Emergency Provider Student in an Organized Health Care Education/Training Program; Visit Provider Family Medicine
DX: F14.921 Cocaine use, unspecified with intoxication delirium (principal); F15.921 Other stimulant use, unspecified with intoxication delirium; M62.82 Rhabdomyolysis; R45.1 Restlessness and agitation; Z78.1 Physical restraint status; E86.0 Dehydration; E87.6 Hypokalemia; R33.9 Retention of urine, unspecified
CPT/HCPCS: 36415; 80048; 80053; 80076; 80307; 82550; 82805; 83690; 84145; 85027; 87635; 93005; 96361; 96374; 99285; 70450; 80320; 80329; 81003; 81015; 83605; 83735; 84439; 84443; 84484; 85025; 87086; 93010; 99223; 99235; 99239; 99284; 99291; G0378; J2060